=== PATIENT | female | born 1950 | race Caucasian/White ===

== ENCOUNTER → 2024-12-11 10:18 | Outpatient (CLI) | payer MEDICARE, OTHER, SELFPAY ==
--- NOTE | 2024-12-11 | DI.RAD.S_ITS ---
PROCEDURE: XR CERVICAL SPINE 2V OR 3V INDICATIONS: PAIN TECHNIQUE: Three views (s) of the cervical spine were acquired. COMPARISON: None. FINDINGS: Cervical spine curvature and alignment: Normal. Bones: There are no osseous abnormalities. Disc spaces: Mild C3-4, moderate C5-6 C6-7 degenerative disc disease noted. 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 Moderate C3-4 C4-5 C5-6 degenerative facet disease noted. Soft tissues: Mild narrowing of the subglottic trachea noted IMPRESSION: Degeneration. Dictated by: Cain Jaramillo M.D. on 12/12/2024 at 12:00 Approved by: Cain Jaramillo M.D. on 12/12/2024 at 12:01
--- NOTE | 2024-12-11 | DI.RAD.S_ITS ---
PROCEDURE: XR LUMBAR SPINE 2-3V INDICATIONS: PAIN TECHNIQUE: 3 views of the lumbar spine were acquired. COMPARISON: None. FINDINGS: Lumbar spine curvature and alignment: Chronic bilateral L5-S1 spondylitic defects with grade 2 spondylolisthesis noted Bones: There are no other osseous abnormalities. Disc spaces: Mild L2-3 L3-4 L4-5 moderate L5-S1 degenerative disc disease noted. Moderate L4-5 L5-S1 degenerative facet disease Intervertebral foramen: Grossly normal in width. Soft tissues: No soft tissue swelling, calcification or mass. 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 This likely results in severe IV foraminal , lateral recess and central canal narrowing with compression of the exiting L5 and descending sacral nerve roots. Please correlate with radiculopathy in the L5-S1 nerve root distribution. If more specific evaluation is required prior to surgery, suggest MRI Dictated by: Cain Jaramillo M.D. on 12/12/2024 at 12:01 Approved by: Cain Jaramillo M.D. on 12/12/2024 at 12:02
--- NOTE | 2024-12-11 | DI.RAD.S_ITS ---
PROCEDURE: XR THORACIC SPINE 2V INDICATIONS: PAIN TECHNIQUE: Two views of the thoracic spine were acquired. COMPARISON: None. FINDINGS: Thoracic spine curvature and alignment: There is accentuation of the normal kyphotic curve Bones: Mild chronic wedging of all the upper midthoracic vertebral bodies is either due to chronic Scheuermann's disease from disc degeneration and/or mild chronic osteoporotic compression fractures. Consider DEXA scanning Disc spaces: Severe degenerative disc disease seen throughout the upper midthoracic spine Soft tissues: No soft tissue swelling, calcification or mass. IMPRESSION: Chronic findings as described Dictated by: Cain Jaramillo M.D. on 12/12/2024 at 12:03 Approved by: Cain Jaramillo M.D. on 12/12/2024 at 12:04
== END ==
LOC: RAD 10:23
PROVIDERS: Referring Provider Chiropractor; Visit Provider Chiropractor
DX: M54.50 Low back pain, unspecified (principal); M47.817 Spondylosis without myelopathy or radiculopathy, lumbosacral region; M51.34 Other intervertebral disc degeneration, thoracic region; M48.54XA Collapsed vertebra, not elsewhere classified, thoracic region, initial encounter for fracture; M43.17 Spondylolisthesis, lumbosacral region; M50.30 Other cervical disc degeneration, unspecified cervical region
CPT/HCPCS: 72040; 72070; 72100